=== PATIENT | female | born 1990 | race Caucasian/White ===

== ENCOUNTER 2023-11-04 21:31 | Emergency (ER) | payer OTHER, SELFPAY ==
[2023-11-04 21:33] VITALS: BP 116/81
[2023-11-04 21:48] VITALS: BMI 37.3
--- NOTE | 2023-11-04 21:59 | ED.GENMED ---
History of Present Illness
General
Chief Complaint: Overdose Unintentional
Source: patient
Exam Limitations: none
Time Seen by Provider: 11/04/23 21:47
Travel History
Have you had any contact with someone who has COVID-19?: No
Do you have any symptoms of coronavirus? Fever > 100 degrees, chills, cough, shortness of breath, sore throat, loss of taste or smell, muscle aches, or headache?: No
History of Present Illness
History of Present Illness:
This is a 33 year old female that comes in with c/o taking an extra dose of Wellbutrin XL. States that she accidently took her Wellbutrin instead of her Lexapro tonight. State that this was around 9:20pm and she took her Morning dose around 11-12pm.
States that she googled and she was afraid that she would have a seizure. Denies any fever, chills, chest pain, SOB, abd pain, nausea, vomiting, diarrhea, headache, dizziness, urinary burning.
Past History
Past History
ED Past Medical History: Hypothyroidism, Psychiatric (Anxiety) and Other (Right leg fracture)
ED Past Surgical History: None
Social History
Tobacco: Non-smoker
Alcohol: Occasional
Personal:
Living: with family
Review of Systems
Review of Systems
All Other Systems: ROS reviewed and negative except as documented in HPI and ROS
Constitutional: Reports no symptoms; Denies fever or chills
EENT: Reports no symptoms
Respiratory: Reports no symptoms; Denies cough or trouble breathing
Cardiac: Reports no symptoms; Denies chest pain
ABD/GI: Reports no symptoms; Denies abdominal pain, nausea, vomiting or diarrhea
: Reports no symptoms; Denies dysuria, frequency or urgency
Musculoskeletal: Reports no symptoms
Skin: Reports no symptoms
Neurological: Reports no symptoms; Denies dizzy or headache
Psychiatric: Reports no symptoms
Phy Exam
General Physical Exam
General Presentation: well appearing and no apparent distress
General age: appears stated age
General Skin: warm and dry
General Habitus: normal
General Mental: alert
General Hydration: dry mucous membranes
ENT Exam
ENT Exam: TM's normal, pharynx normal and neck supple
Eye Exam
Eye Exam: EOMI
Cardiovascular Exam
Cardiovascular Exam: regular rate/rhythm, no edema and normal peripheral pulses
Pulmonary Exam
Pulmonary Exam: lungs clear, no respiratory distress, no rales, chest non tender, no crackles, no rhonchi, no wheezing and no cough
Gastrointestinal Exam
Gastrointestinal Exam: normal bowel sounds, non tender, soft, no organomegaly, no pulsatile mass and non distended
Musculoskeletal Exam
Musculoskeletal Exam: full ROM and no edema
Skin Exam
Skin Exam: normal color, warm/dry, no rash and no petechia
Psychiatric Exam
Psychiatric Exam: normal mood/affect
Course
Orders/Labs/Results
Orders:
Orders
11/04/23 21:38
ECG [Electrocardiogram (*1)] Urgent
Reason for Study: Other
Other Reason for Exam: extra dose of medication
11/04/23 21:39
EKG- Treatment ONCE
Vital Signs
Initial and Last Documented VS:
Initial Vital Signs
Temp Pulse BP Pulse Ox
98.2 F 79 116/81 97
11/04/23 21:33 11/04/23 21:33 11/04/23 21:33 11/04/23 21:33
Last Documented Vital Signs
Temp Pulse Resp BP Pulse Ox
98.2 F 70 18 110/58 100
11/04/23 21:33 11/04/23 22:00 11/04/23 22:00 11/04/23 22:00 11/04/23 22:00
MDM/Problems Addressed
Differential Diagnosis Includes:
Accidental medication usage
MDM/Problems Addressed:
This is a 33 year old female that comes in with c/o taking an extra dose of her Wellbutrin instead of her Lexapro.
Explained to patient that she is fine as some people take Wellbutrin BID. Will watch patient for short time as she is Anxious and then discharge home.
*Pulse Oximetry
Patient hypoxic: no
*EKG
Interpreted by ED Provider?: Yes
Heart Rate: 71
Rate: normal
Rhythm: sinus
[place]: normal axis
Interval: normal interval
QRS Pattern: normal QRS
Ischemia: no ischemia
*Billet Heater Operator Interpretation
Rate: Billet Heater Operator- N/A
*Critical Care Note
Total Time (30-74mins, 75-104mins- exclusive of procedures): Not Applicable
ED Attending Note
-
Portions of this chart may have been created with voice recognition software.� Occasional wrong word or��sound alike� substitutions may have occurred due to the inherent limitations of voice recognition software.
Discharge Plan
Departure
Patient Disposition: Home (Routine Discharge)
Date of Disposition: 11/04/23
Time of Disposition: 22:05
Patient with high blood pressure during this ER visit?: No
Condition: Good
Discharge Problem:
extra dose of medication
Prescriptions:
No Action
ibuprofen 600 mg Tablet
600 mg PO Q6HPRN PRN (Reason: moderate pain/cramps) Qty: 45 0RF
levothyroxine 50 mcg Tablet
75 mcg PO DAILY
escitalopram oxalate [Lexapro] 10 mg Tablet
10 mg PO DAILY
bupropion HCl [Wellbutrin XL] 150 mg Tablet Extended Release 24 Hr
150 mg PO DAILY
Activity Restrictions/Additional Instructions:
As discussed, this extra dose will not hurt you. Some people take Wellbutrin twice daily at this dosage. Please take your Wellbutrin tomorrow at your normal time. Follow up with the family doctor for recheck. IF YOU HAVE ANY OTHER CONCERNS PLEASE
RETURN TO THE EMERGENCY ROOM.
Interventions
Interventions:
*Risk Screen - Suicide Last Done: 11/04/23 21:36
*General Assessment Last Done: 11/04/23 21:36
*Neglect/Abuse Screening Last Done: 11/04/23 21:36
ED- Fall Risk Assessment Last Done: 11/04/23 21:51
*ED COVID-19 Vaccine History Last Done: 11/04/23 21:49
*Nursing Disposition Last Done: 11/04/23 22:39
ED- Cardiac Assessment Last Done: 11/04/23 21:51
ED- Neurological Assessment Last Done: 11/04/23 21:51
ED-Psychological Assessment Last Done: 11/04/23 21:51
ED- Pulmonary Assessment Last Done: 11/04/23 21:51
Discharge Date and Time
Discharge Date/Time: 11/04/23 22:41
Print Language: HUNGARIAN
[2023-11-04 22:00] VITALS: BP 110/58
== END 2023-11-04 22:41 | disposition home or self-care (01) ==
LOC: EMR 21:31
PROVIDERS: EMERGENCY PHYSICIAN Emergency Medicine; FAMILY PHYSICIAN Physician Assistant Medical
DX: T43.291A Poisoning by other antidepressants, accidental (unintentional), initial encounter (principal); F41.9 Anxiety disorder, unspecified; E03.9 Hypothyroidism, unspecified
CPT/HCPCS: 99283; 93005

== ENCOUNTER → 2024-08-28 09:35 | Outpatient (REF) | payer OTHER, SELFPAY | LOC: HWRAD 09:35 | PROVIDERS: ATTENDING PHYSICIAN Physician Assistant Medical | DX: M79.89 Other specified soft tissue disorders (principal) | CPT/HCPCS: 76882 ==